=== PATIENT | female | born 1980 | race Caucasian/White ===

== ENCOUNTER 2021-10-21 13:44 | Emergency (ER) | payer BC, SELFPAY ==
[2021-10-21 13:53] VITALS: BP 137/80; PULSE 72; RESP 16; TEMP 37.1; O2SAT 100
--- NOTE | 2021-10-21 15:29 | ED.URI ---
HPI - URI/Sore Throat General Chief Complaint: Upper Respiratory Infection Stated Complaint: sore throat Time Seen by Provider: 10/21/21 15:15 Source: patient Mode of arrival: ambulatory Limitations: no limitations History of Present Illness HPI Narrative: Patient presents today with a 3-day history of sore throat and occasional rhinorrhea with sporadic cough. Denies shortness of breath, fever, difficulty swallowing, or any additional symptoms. She has tried no medication for symptoms prior to arrival. She currently rates her pain 310. Denies asthma, COPD, seasonal allergies. She is a non-smoker. Related Data Home Medications Medication Instructions Recorded Confirmed levothyroxine 10/21/21 Allergies Allergy/AdvReac Type Severity Reaction Status Date / Time No Known Allergies Allergy Verified 10/21/21 14:01 Review of Systems Review of Systems: CONSTITUTIONAL: Denies body aches, fever, chills, or sweats. EYES: Denies visual changes, redness, or discharge. ENT: Denies congestion, or otalgia.+ Rhinorrhea, sore throat CARDIOVASCULAR: Denies chest pain, palpitations, or edema. RESPIRATORY: Denies dyspnea.+ Cough GASTROINTESTINAL: Denies abdominal pain, nausea, vomiting, or diarrhea. GENITOURINARY: Denies dysuria or hematuria. SKIN: Denies rash, itching, or wounds. MUSCULOSKELETAL: Denies back pain, joint pain, or myalgia. NEUROLOGIC: Denies headache, numbness, tingling, or weakness. PSYCH: Denies depression or anxiety. PMFSH Comments At time of signature, I have reviewed and agree with nursing past medical, surgical, social and family history unless otherwise noted. Please see nursing chart for further information. There is no relevant family history pertinent to the presenting complaint Exam Narrative: GENERAL: Well-appearing, well-nourished, and in no acute distress. HEAD: Normocephalic, atraumatic. EYES: EOMI. No redness or drainage. Conjunctivae normal. ENT: Mucous membranes pink and moist. Nares clear. No rhinorrhea. TMs normal bilaterally. Throat normal. Uvula midline. NECK: Normal AROM. Supple. No lymphadenopathy. CHEST: No respiratory distress. Clear to auscultation. HEART: Regular rate and rhythm. No murmur appreciated. Normal peripheral pulses. EXTREMITIES: Normal range of motion. No edema. SKIN: Warm, dry, no rash. Capillary refill normal. Normal skin turgor. NEURO: No focal deficits. Alert and oriented x3. Gait steady. PSYCH: Normal affect. No signs of depression or anxiety. Course Course Level of Care: Express Care Visit Vital Signs Vital signs: Vital Signs Temperature 98.8 F 10/21/21 13:53 Pulse Rate 72 10/21/21 13:53 Respiratory Rate 16 10/21/21 13:53 Blood Pressure 137/80 10/21/21 13:53 Pulse Oximetry 100 10/21/21 13:53 Oxygen Delivery Room Air 10/21/21 13:53 Temperature 98.8 F 10/21/21 13:53 Pulse Rate 72 10/21/21 13:53 Respiratory Rate 16 10/21/21 13:53 Blood Pressure 137/80 10/21/21 13:53 Pulse Oximetry 100 10/21/21 13:53 Oxygen Delivery Room Air 10/21/21 13:53 Reviewed. Pt has been instructed to follow up with her PCP regarding her elevated blood pressure today. MDM - URI/Sore Throat Differential Diagnosis Differential diagnosis: Likely upper respiratory infection, sinusitis, viral infection and pharyngitis Critical Care Time Critical Care Time Critical Care Time: No Discharge Plan Discharge Clinical Impression: Upper respiratory infection Patient Disposition: Home, Self-Care Condition: Stable Instructions: Upper Respiratory Infection (DC) Additional Instructions: Your exam showed some postnasal drainage and some fluid behind her right ear, but is otherwise normal. Please start an antihistamine such as Zyrtec, Claritin, or Sravani. Take Tylenol or ibuprofen for pain. Follow-up with your doctor in 1 week if symptoms are not improving. Your blood pressure was elevated above 120/80 today at Urgent
== END 2021-10-21 15:38 | disposition home or self-care (01) ==
PROVIDERS: Emergency Provider Nurse Practitioner
DX: J06.9 Acute upper respiratory infection, unspecified (principal); E03.9 Hypothyroidism, unspecified
CPT/HCPCS: 99211; G0463